=== PATIENT | male | born 1975 | race Caucasian/White ===

== ENCOUNTER 2024-08-26 09:12 | Outpatient (CLI) | payer SELFPAY ==
--- NOTE | 2024-08-26 09:33 | CT_ITS ---
WS: [id number] CT CALCIUM SCORE REASON FOR VISIT: FAMILY HX OF PREMATURE CHD, HYPERTENSION, HYPERLIPIDEMIA; Coronary artery disease risk assessment COMPARISON: None TECHNIQUE: Noncontrast coronary CT in combination with quantitative analysis performed on a separate workstation were used to determine CACS (Agatston score) TOTAL EXAM DOSE: 342.27 mGy.cm ECG GATING: Prospective SCAN RANGE: Pulmonary artery bifurcation to Inferior aspect of heart COMPLICATIONS: None FINDINGS: Technical Quality/Examination Quality: Good Limitaiton: None OVERALL SCORES Total calcium score: 3470 Total volume score: 2656 mm3 Percentile: 90th-100th percentile for males between the ages of 50 and 54. ARTERY SCORES Left main coronary artery: 154 Left anterior descending artery: 1244 Left circumflex artery: 369 Right coronary artery: 1703 OTHER FINDINGS: Mediastinum: Normal. Thoracic aorta: Aortic calcification. Lungs: Calcified granuloma LEFT upper lobe Upper Abdomen: Tiny esophageal hiatal hernia. MINIMAL: 1-10 MILD: 11-100 MODERATE: 101-400 SEVERE:>400 CT/CT heart w calcium score 86348 IMPRESSION: 1. Total calcium score of 3470 compatible with severe coronary artery disease for a patient this age 1. Recommend cardiology consultation GRADING OF CORONARY ARTERY DISEASE (BASED ON TOTAL CALCIUM SCORE) NO EVIDENCE OF CAD: 0 calcium score
== END 2024-08-26 09:13 | disposition home or self-care (01) ==
PROVIDERS: PCP Family Medicine; Visit Provider Family Medicine
DX: I25.10 Atherosclerotic heart disease of native coronary artery without angina pectoris (principal); I10 Essential (primary) hypertension; E78.5 Hyperlipidemia, unspecified; E11.9 Type 2 diabetes mellitus without complications; Z82.49 Family history of ischemic heart disease and other diseases of the circulatory system
CPT/HCPCS: 75571